=== PATIENT | male | born 1955 | race Caucasian/White ===

== ENCOUNTER 2017-12-10 15:51 | Emergency (ER) | payer OTHER, SELFPAY ==
[2017-12-10 16:15] LABS: Clarity Cloudy (Clear); Leukocyte Negative (Negative); Specific Gravity, Urine 1.015 (1.005-1.030); pH, Urine Greater/Equal 9.0 (5.0-9.0)
[2017-12-10 16:16] LABS: Bacteria/HPF 3+ HPF (None Seen); Bilirubin Negative (Negative); Blood, Urine Large (Negative); Glucose, Urine (Dipstick) Negative (Negative); Nitrite Negative (Negative); Protein, Urine (Dipstick) 100 mg/dL (Neg-Trace); RBC/HPF GREATER THAN 50-TNTC HPF (0-3); Squamous Epithelial 0-3 HPF (0-3); Urobilinogen 0.2 mg/dL (0.2-1.0); WBC/HPF 0-3 HPF (0-3)
[2017-12-10] MEDS ORDERED: Ketorolac Tromethamine 30 MG/ML VIAL ONE (16:23)
[2017-12-10 16:27] LABS: Hemoglobin 16.6 g/dL (14.0-18.0); Mean Corpuscular HGB CONC 35.3 g/dL (32.0-36.0); Mean Corpuscular Hemoglobin 32.9 pg (27.0-31.0); Mean Corpuscular Volume 93.3 fL (78.0-98.0); Platelet Count 367 thou/uL (130-400); RBC Distribution Width 11.5 % (11.5-14.5); Red Blood Cell (RBC) Count 5.05 mill/uL (4.70-6.10); White Blood Cell (WBC) Count 20.3 thou/uL (4.8-10.8)
[2017-12-10 16:41] LABS: ALT (SGPT) 21 U/L (8-55); AST (SGOT) 21 U/L (5-34); Albumin 4.4 g/dL (3.5-5.0); Alkaline Phosphatase 73 U/L (40-150); Anion Gap 20 mmol/L (10-20); BUN (Urea Nitrogen) 20 mg/dL (8.4-25.7); Bilirubin, Total 0.9 mg/dL (0.2-1.2); Calc. Creatinine Clearance 0 mL/min (70-130); Carbon Dioxide 25 mmol/L (22-29); Chloride 100 mmol/L (98-107); Estimated GFR-MDRD 57; Globulin 3.1 g/dL (2.4-3.5); Glucose 128 mg/dL (70-105); Lipase 24 U/L (8-78); Potassium 3.7 mmol/L (3.5-5.1); Protein, Total 7.5 g/dL (6.0-8.3); Sodium 141 mmol/L (136-145)
[2017-12-10 16:42] LABS: CKMB 0.9 ng/mL (0-6.6); Troponin I Less than 0.010 ng/mL (< 0.028)
[2017-12-10 16:43] LABS: Band 3 % (5-11); Lymphocytes 10 % (21-51); MDiff Complete? YES; Monocytes 8 % (0-10); Neutrophil 79 % (42-75)
[2017-12-10] MEDS ORDERED: cefTRIAXone\\ROCEPHIN 1 GM VIAL ONE (16:55)
[2017-12-10] MEDS ORDERED: Tamsulosin HCl 0.4 MG CAP PO SCH (17:00)
[2017-12-10 17:17] LABS: Cocaine Metabolite Screen Not Detected (NotDetected); Methamphetamine Not Detected (NotDetected); Opiate Screen Not Detected (NotDetected); Phencyclidine (PCP) Not Detected (NotDetected); THC/Cannabinoid Screen Not Detected (NotDetected)
--- NOTE | 2017-12-10 17:17 | CT ---
CT ABDOMEN NONCONTRAST CT PELVIS NONCONTRAST: (urolithiasis protocol) DATE: 12/10/2017 TIME: 4:30 p.m. HISTORY: A 62-year-old male with nausea, emesis, left flank pain, and hematuria. COMPARISON: None. TECHNIQUE: IV injection of iodinated contrast media: none Oral contrast media: none FINDINGS: Other than for urolithiasis, the lack of IV and oral contrast limits the evaluation. There is a 7 x 4 x 5 mm calculus in the proximal left ureter, at the L2-L3 level. There is very mild dilation of the left renal collecting system. There is prominent, extensive fat stranding throughout the left perirenal space, which could represent extravasated urine, via pyelocalyceal blow-out, whic h would explain such mild degree of left hydronephrosis. There is a tiny, punctate, 1 or 2 mm calcul us at a left renal mid/upper pole calyx. There is no calculus in the right kidney. No right-sided h ydronephrosis. No calculus within the decompressed urinary bladder. No colonic diverticulitis. No small bowel dilation. No pneumoperitoneum or ascites. Within the limitations of a noncontrast scan, no major pathology is identified involving the appendix, abdominal aorta, liver, pancreas, adrenals, right kidney, or spleen. Anterolisthesis of L5 on S1 due to bilateral L5 spondylolysis. Intramedul polly nail partially visualized in the proximal right femur. The lung bases are clear. No pleural ef fusion. IMPRESSION: 1. Left-sided urolithiasis: A 7 mm calculus lodged in the left proximal ureter, causing only mild l eft hydronephrosis. The mildness of the hydronephrosis could be explained by decompression via a shweta localyceal rupture, resulting in small to moderate amount of urine extravasation throughout the left perirenal space. 2. Grade 1 spondylolisthesis at L5-S1 due to bilateral L5 spondylolysis. RADHA Shepard POS: NATHALY
[2017-12-10 17:18] LABS: Amphetamine Not Detected (NotDetected); Barbiturates Screen Not Detected (NotDetected); Benzodiazepine Screen Detected (NotDetected); Medtox Control Line Valid? VALID (VALID); Methadone Not Detected (NotDetected); Oxycodone Screen Not Detected (NotDetected); Tricyclic Screen Not Detected (NotDetected)
--- NOTE | 2017-12-10 18:44 | RAD ---
CHEST TWO VIEWS: 12/10/2017 COMPARISON: No prior films are available for comparison. FINDINGS: The heart is normal in size. There is no vascular congestion, edema, or pleural effusion. No infilt rates are present. The trachea is midline. Slight haziness behind the heart on the lateral view is felt to only be normal markings overlapping vertebrae. Degenerative changes are seen, particularly i n the mid to lower thoracic spine. IMPRESSION: No acute finding. POS: HOME
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
== END 2017-12-10 18:03 | disposition short-term general hospital (02) ==
LOC: BURERS 15:51
DX: A41.9 Sepsis, unspecified organism (principal); N13.2 Hydronephrosis with renal and ureteral calculous obstruction; M19.90 Unspecified osteoarthritis, unspecified site; Z79.899 Other long term (current) drug therapy
CPT/HCPCS: 36415; 71046; 74176; 80053; 80306; 81003; 81015; 82553; 83605; 83690; 84484; 85025; 87040; 87086; 93005; 94760; 96365; 96375; J0696; J1885; J1956

== ENCOUNTER 2019-02-07 15:16 | Outpatient (CLI) | payer BC ==
--- NOTE | 2019-02-07 17:25 | RAD ---
LEFT FOOT THREE VIEWS: 02/07/19 There is considerable arthritic change between some of the cuneiforms and base of the first three met atarsals. Large osteophytes project dorsally from these joints. A small tailor's bunion is noted on t he lateral aspect of the fifth metatarsal head. No fracture or periosteal reaction was seen. IMPRESSION: 1. Substantial degenerative changes in some of the medial tarsometatarsal joints. 2. Small tailor's bunion of the fifth metatarsal. POS: HOME
== END 2019-02-07 15:17 | disposition home or self-care (01) ==
LOC: BURRAD 15:16
PROVIDERS: ATTEND Family Medicine
DX: M79.672 Pain in left foot (principal); M19.072 Primary osteoarthritis, left ankle and foot; M21.622 Bunionette of left foot

== ENCOUNTER 2023-01-15 09:14 | Outpatient (CLI) | payer MEDICARE, BC | END 2023-01-15 09:15 | disposition home or self-care (01) | LOC: BURRAD 09:14 | PROVIDERS: ATTEND Neurological Surgery | DX: M50.30 Other cervical disc degeneration, unspecified cervical region (principal); M47.812 Spondylosis without myelopathy or radiculopathy, cervical region; Z98.890 Other specified postprocedural states | CPT/HCPCS: 72040 ==